=== PATIENT | male | born 1995 | race Two or more races ===

== ENCOUNTER 2017-08-13 00:11 | Inpatient (IN) | payer OTHER ==
--- NOTE | 2017-08-13 01:02 | HP ---
COWS - Scale Resting Pulse: 0= [place] 80 or Below Sweatin=Flushed/Facial Moisture Restless Observation: 5= Unable to Sit Still Pupil Size: 1= Pupils >than Normal Bone or Joint Aches: 4=Acute Joint/Muscle Pain Runny Nose/ Eye Tearin= Nasal Congestion GI Upset > 30mins: 2= Nausea/Diarrhea Tremor Observation: 2= Slight Tremor Visible Yawning Observation: 0= None Anxiety or Irritability: 2=Irritable/Anxious Goose Flesh Skin: 0=Smooth Skin COWS Score: 19 Admission [facility] - HPI Chief Complaint: C/O WITHDRAWAL SX'S AND HEROIN DEPENDENCE Allergies/Adverse Reactions: Allergies Allergy/AdvReac Type Severity Reaction Status Date / Time No Known Allergies Allergy Verified 08/13/17 00:56 History of Present Illness: 22 Y.O. MALE WITH LONG HX/O OPIOID DEPENDENCE HERE FOR DETOX. CLIENT REPORTS COMPLETING DETOX 2 WEEKS AGO AT [facility] BUT HAS SINCE RELAPSED. SELF REFERRED. DENIES ANY SIGNIFICANT PERIOD OF CLEAN TIME. PMHX DENIES BUT DOES REPORT MENTAL HEALTH HX/O DEPRESSION, BIPOLAR, ANXIETY ON MEDICATION MGMT. DENIES SI/HI, A/V HALLUCINATIONS. UTOX + FOR MTD, CLIENT DENIES USE Exam Limitations: No Limitations - Ebola screening Have you traveled outside of the country in the last 21 days: No (N) Have you had contact with anyone from an Ebola affected area: No Do you have a fever: No - Review of Systems Constitutional: Chills, Loss of Appetite, Malaise, Night Sweats, Changes in sleep EENT: reports: Nose Congestion Respiratory: reports: No Symptoms reported Cardiac: reports: No Symptoms Reported GI: reports: Nausea, Poor Appetite, Poor Fluid Intake : reports: No Symptoms Reported Musculoskeletal: reports: Joint Pain Integumentary: reports: No Symptoms Reported Neuro: reports: No Symptoms reported Endocrine: reports: No Symptoms Reported Hematology: reports: No Symptoms Reported Psychiatric: reports: Anxious, Depressed Other Systems: Reviewed and Negative Patient History - Patient Medical History Hx Anemia: No Hx Asthma: No Hx Chronic Obstructive Pulmonary Disease (COPD): No Hx Cancer: No Hx Cardiac Disorders: No Hx Congestive Heart Failure: No Hx Hypertension: No Hx Hypercholesterolemia: No Hx Pacemaker: No HX Cerebrovascular Accident: No Hx Seizures: No Hx Dementia: No Hx Diabetes: No Hx Gastrointestinal Disorders: No Hx Liver Disease: No Hx Genitourinary Disorders: No Hx Sexually Transmitted Disorders: No Hx Renal Disease (ESRD): No Hx Thyroid Disease: No Hx Human Immunodeficiency Virus (HIV): No Hx Hepatitis C: No Hx Depression: Yes Hx Suicide Attempt: No Hx Bipolar Disorder: Yes Hx Schizophrenia: No Other Medical History: DENIES - Patient Surgical History Past Surgical History: No - PPD History Previous Implant?: Yes Documented Results: Negative w/o proof Implanted On Prior [facility] Admission?: No PPD to be Administered?: Yes - Smoking Cessation Smoking history: Current every day smoker Have you smoked in the past 12 months: Yes Aproximately how many cigarettes per day: 10 Cigars Per Day: 0 Hx Chewing Tobacco Use: No Initiated information on smoking cessation: Yes 'Breaking Loose' booklet given: 08/13/17 - Substance & Tx. History Hx Alcohol Use: No Hx Substance Use: No Substance Use Type: Heroin Hx Substance Use Treatment: Yes ([facility]) - Substances Abused HEROIN Route: Injection Frequency: Daily Amount used: 10 Age of first use: 21 Date of Last Use: 08/12/17 Family Disease History - Family Disease History Family History: Denies Admission Physical Exam [facility] - Physical General Appearance: Yes: Appropriately Dressed, Mild Distress, Tremorous, Anxious HEENTM: Yes: EOMI, Normocephalic, Normal Voice, ARIADNA, Pharynx Normal, Nasal Congestion Respiratory: Yes: Chest Non-Tender, Lungs Clear, Normal Breath Sounds, No Respiratory Distress, No Accessory Muscle Use Neck: Yes: No masses,lesions,Nodules, Supple, Trachea in good position Breast: Yes: Breast Exam Deferred Cardiology: Yes: Regular Rhythm, Regular Rate, S1, S2 Abdominal: Yes: Normal Bowel Sounds, Non Tender, Flat, Soft Genitourinary: Yes: Within Normal Limits Back: Yes: Normal Inspection Musculoskeletal: Yes: full range of Motion, Gait Steady Extremities: Yes: Normal Range of Motion, Non-Tender, Tremors Neurological: Yes: Fully Oriented, Alert, Motor Strength 5/5 Integumentary: Yes: Normal Color, Warm, Track [place] Lymphatic: Yes: Within Normal Limits - Diagnostic (1) Opioid dependence with withdrawal Current Visit: Yes Status: Chronic (2) Cannabis abuse, uncomplicated Current Visit: Yes Status: Chronic (3) Nicotine dependence Current Visit: Yes Status: Chronic Qualifiers: Nicotine product type: cigarettes Substance use status: uncomplicated Qualified Code(s): F17.210 - Nicotine dependence, cigarettes, uncomplicated (4) Depressed mood Current Visit: Yes Status: Suspected Cleared for Admission [facility] - Detox or Rehab [facility] Level of Care: Medically Managed Detox Regimen/Protocol: Methadone Claeared for Rehab Admission: No BHS Breath Alcohol Content Breath Alcohol Content: 0 Vital Signs - Vital Signs Vital Signs Refused: No Temperature: 96.7 F Temperature Source: Oral Pulse Rate: 65 Respiratory Rate: 18 Blood Pressure: 145/85 BP Location: Left Arm Blood Pressure Position: Sitting - Height Height: 5 ft 11 in - Weight Weight: 81.647 kg Weight Measurement Method: Stated by Patient Body Mass Index (BMI): 25.1 - Bowel Function Bowel Movement: No Urine Drug Screen - Test Device Lot Number: [id number] Expiration Date: 04/30/19 - Control Is Test Valid: No - Results Drug Screen Negative: No Urine Drug Screen Results: THC-Marijuana, OPI-Opiates
[2017-08-13 01:07] VITALS: BMI 25.1
[2017-08-13] MEDS ORDERED: MAG HYDROX/AL HYDROX/SIMETH 30 ML UNIT-DOSE CUP PO PRN (01:08)
[2017-08-13] MEDS ORDERED: MAGNESIUM CITRATE 300 ML BOTTLE PO PRN (01:08)
[2017-08-13] MEDS ORDERED: MAGNESIUM HYDROX 2400MG/30ML ORAL SUSPENSION 30 ML CUP PO PRN (01:08)
[2017-08-13] MEDS ORDERED: LOPERAMIDE HCL 2 MG CAPSULE PO PRN (01:08)
[2017-08-13] MEDS ORDERED: METHADONE HCL 10 MG TABLET (FOR DETOX USE ONLY) PO ONE ×4 (01:08→23:00)
[2017-08-13] MEDS ORDERED: P-EPHED 60MG/TRIPROLIDI 2.5MG TABLET PO PRN (01:08)
[2017-08-13] MEDS ORDERED: IBUPROFEN 400 MG TABLET (FP) PO PRN (01:08)
[2017-08-13] MEDS ORDERED: MENTHOL/PHENOL 1 EACH UD MM PRN (01:08)
[2017-08-13] MEDS ORDERED: guaiFENesin/D-METHORPHAN HB 10 ML UNIT-DOSE CUPS PO PRN (01:08)
[2017-08-13] MEDS ORDERED: ACETAMINOPHEN 325 MG TABLET (FP) PO PRN (01:08)
[2017-08-13] MEDS: diazePAM 5 MG TABLET PO PRN ×5 (03:20→23:30)
[2017-08-13] MEDS: PRENATAL VITAMINS W/ FOLIC ACID TABLET (FP) PO SCH (10:37)
[2017-08-13] MEDS: NICOTINE 21 MG/24 HOURS TOPICAL PATCH TD SCH (10:37)
[2017-08-13] MEDS: NICOTINE POLACRILEX 2 MG GUM BC PRN (10:40)
[2017-08-13] MEDS ORDERED: FLU VACCINE QUAD 60 MCG/0.5 ML (MDV 17-18) IM ONE (12:00)
[2017-08-13] MEDS ORDERED: PNEUMOCOCCAL 23 VACCINE 0.5 ML VIAL IM ONE (12:00)
[2017-08-13] MEDS ORDERED: PNEUMOC 13-VAL CONJ-DIP CRM/PF 0.5 ML DISP.SYRIN IM ONE (12:00)
--- NOTE | 2017-08-13 12:03 | EKG ---
Test Reason : Blood Pressure : / mmHG Vent. Rate : 063 BPM Atrial Rate : 063 BPM P-R Int : 144 ms QRS Dur : 090 ms QT Int : 392 ms P-R-T Axes : 060 070 045 degrees QTc Int : 401 ms NORMAL SINUS RHYTHM NORMAL ECG NO PREVIOUS ECGS AVAILABLE Confirmed by SEPIDEH MOULTON, MAYE ([id number]) on 08/13/2017 12:02:48 PM Referred By: Confirmed By:MAYE BUNN MD
--- NOTE | 2017-08-13 13:50 | PN ---
BHS COWS - Scale Resting Pulse: 1= [place] 81-100 Sweatin= No chills or Flushing Restless Observation: 0= Sits Still Pupil Size: 0= Normal to Room Light Bone or Joint Aches: 2= Severe Diffuse Aches Runny Nose/ Eye Tearin= Runny Nose/Eyes GI Upset > 30mins: 2= Nausea/Diarrhea Tremor Observation of Outstretched Hands: 2= Slight Tremor Visible Yawning Observation: 2= >3x During Session Anxiety or Irritability: 2=Irritable/Anxious Goose Flesh Skin: 3=Piloerection COWS Score: 16 BHS Progress Note (SOAP) Subjective: Body Aches, Stomach Cramping, Nausea, Fatigue, Runny Nose. Objective: 08/13/17 13:49 Vital Signs Temperature 97.4 F L 08/13/17 09:40 Pulse Rate 74 08/13/17 09:40 Respiratory Rate 18 08/13/17 09:40 Blood Pressure 128/65 08/13/17 09:40 O2 Sat by Pulse Oximetry (%) ADMISSION LABS RESULTS PENDING. Assessment: 08/13/17 13:49 WITHDRAWAL SYMPTOMS. Plan: CONTINUE DETOX.
--- NOTE | 2017-08-13 13:50 | CONSULT ---
[facility] Psychiatric Consult - Data Date of interview: 08/13/17 Admission source: [facility] Identifying data: First admission to [facility] for this [place] male seeking detox treatment on for heroin and cannabis dependence.Patient is single without children,domiciled,unemployed and currently supported by his parents. Substance Abuse History: Confirmed by patient in this session.Smoking history: Current every day smoker. Have you smoked in the past 12 months: Yes. Aproximately how many cigarettes per day: 10. Cigars Per Day: 0. Hx Chewing Tobacco Use: No. Initiated information on smoking cessation: Yes. 'Breaking Loose' booklet given: 08/13/17. - Substance & Tx. History. Hx Alcohol Use: No. Hx Substance Use: No. Substance Use Type: Heroin. Hx Substance Use Treatment: Yes ([facility]). - Substances Abused. HEROIN. Route: Injection. Frequency: Daily. Amount used: 10. Age of first use: 21. Date of Last Use: 08/12/17 Medical History: Patient denies. Psychiatric History: Patient denies. Physical/Sexual Abuse/Trauma History: No reported history of abuse. Additional Comment: Urine Drug Screen Results: THC-Marijuana, OPI-Opiates.Noted. Mental Status Exam - Mental Status Exam Alert and Oriented to: Time, Place, Person Cognitive Function: Good Patient Appearance: Well Groomed Mood: Hopeful, Euthymic Affect: Appropriate, Normal Range Patient Behavior: Fatigued, Appropriate, Cooperative Speech Pattern: Clear, Appropriate Voice Loudness: Normal Thought Process: Intact, Goal Oriented Thought Disorder: Not Present Hallucinations: Denies Suicidal Ideation: Denies Homicidal Ideation: Denies Insight/Judgement: Poor Sleep: Poorly, Difficulty falling asleep Appetite: Good Muscle strength/Tone: Normal Gait/Station: Normal Psychiatric Findings - Problem List ([place] 1, 2,3) (1) Opioid dependence with withdrawal Current Visit: Yes Status: Acute (2) Cannabis abuse, uncomplicated Current Visit: Yes Status: Acute (3) Nicotine dependence Current Visit: Yes Status: Acute Qualifiers: Nicotine product type: cigarettes Substance use status: uncomplicated Qualified Code(s): F17.210 - Nicotine dependence, cigarettes, uncomplicated (4) Insomnia Current Visit: Yes Status: Acute - Initial Treatment Plan Initial Treatment Plan: Psychoeducation.Sleep hygiene.Detoxification in progress.Ambien 5 mg po hs prn.Patient is made aware of the risk of parasomnias.Mr Da agrees with this careplan.Observation.
[2017-08-13 16:18] LABS: HEMATOCRIT 42.5 % (35.4-49); MCH 28.5 pg (25.7-33.7); MEAN CELL VOLUME 86.4 fl (80-96); MEAN PLT VOLUME 7.6 fl (7.5-11.1); PLATELET COUNT 315 K/MM3 (134-434); RBC 4.93 M/mm3 (4.00-5.60); RDW 13.5 % (11.9-15.9); WHITE BLOOD COUNT 5.4 K/mm3 (4.0-10.0)
[2017-08-13 16:22] LABS: URINE APPEARANCE CLOUDY; URINE BILIRUBIN NEGATIVE (<2.0 mg/dL); URINE COLOR DKYELLOW; URINE GLUCOSE (UA) 2+ (NEGATIVE); URINE KETONE NEGATIVE (NEGATIVE); URINE LEUK ESTERASE NEGATIVE (NEGATIVE); URINE NITRITE NEGATIVE (NEGATIVE); URINE UROBILINOGEN NEGATIVE mg/dL (0.2-1.0)
[2017-08-13 16:30] LABS: CHLORIDE 102 mmol/L (98-107); SODIUM 139 mmol/L (136-145)
[2017-08-13 16:37] LABS: ALBUMIN 4.1 g/dl (3.4-5.0); ALK PHOS 76 U/L (45-117); ANION GAP 6 (8-16); BILIRUBIN,TOTAL 1.3 mg/dL (0.2-1.0); BLOOD UREA NITROGEN 13 mg/dL (7-18); CALCIUM 9.2 mg/dL (8.5-10.1); CO2 31 mmol/L (21-32); GLUCOSE,RANDOM 107 mg/dL (74-106); SGOT/AST 13 U/L (15-37); SGPT/ALT 22 U/L (12-78)
[2017-08-13 16:38] LABS: URINE PROTEIN 3+ (NEGATIVE)
[2017-08-13 17:57] LABS: EPI CELLS RARE /HPF (FEW); URINE MUCUS MODERATE
[2017-08-13] MEDS ORDERED: MELATONIN 5 MG TABLETS PO PRN (22:00)
[2017-08-13] MEDS: ZOLPIDEM TARTRATE 5 MG TABLET PO PRN (22:22)
[2017-08-13] MEDS: THIAMINE HCL 100 MG TABLET (FP) PO SCH (22:22)
[2017-08-14] MEDS: diazePAM 5 MG TABLET PO PRN ×4 (08:49→22:22)
[2017-08-14] MEDS: NICOTINE 21 MG/24 HOURS TOPICAL PATCH TD SCH (09:47)
[2017-08-14] MEDS: PRENATAL VITAMINS W/ FOLIC ACID TABLET (FP) PO SCH (09:47)
[2017-08-14] MEDS ORDERED: METHADONE HCL 10 MG TABLET (FOR DETOX USE ONLY) PO ONE (10:00)
[2017-08-14] MEDS: NICOTINE POLACRILEX 2 MG GUM BC PRN (13:38)
--- NOTE | 2017-08-14 14:48 | PN ---
BHS COWS - Scale Resting Pulse: 1= [place] 81-100 Sweatin= Chills/Flushing Restless Observation: 1= Difficult to Sit Still Pupil Size: 0= Normal to Room Light Bone or Joint Aches: 2= Severe Diffuse Aches Runny Nose/ Eye Tearin= Nasal Congestion GI Upset > 30mins: 1= Stomach Cramp Tremor Observation of Outstretched Hands: 0= None Yawning Observation: 0= None Anxiety or Irritability: 2=Irritable/Anxious Goose Flesh Skin: 3=Piloerection COWS Score: 12 BHS Progress Note (SOAP) Subjective: Interrupted Sleep, Fatigue, Body Aches, Stomach Cramping, Anxious. Objective: PATIENT A & O X 2 (UNCERTAIN ABOUT CURRENT DAY / DATE). PATIENT OBSERVED AMBULATING ON UNIT. NO ACUTE DISTRESS. 08/14/17 14:49 Vital Signs Temperature 97.6 F 08/14/17 14:25 Pulse Rate 83 08/14/17 14:25 Respiratory Rate 20 08/14/17 14:25 Blood Pressure 121/77 08/14/17 14:25 O2 Sat by Pulse Oximetry (%) Laboratory Tests 08/13/17 08/13/17 08/13/17 09:00 09:00 09:00 WBC 5.4 RBC 4.93 Hgb 14.0 Hct 42.5 MCV 86.4 MCH 28.5 MCHC 33.0 RDW 13.5 Plt Count 315 MPV 7.6 Sodium 139 Potassium 4.0 Chloride 102 Carbon Dioxide 31 Anion Gap 6 L BUN 13 Creatinine 1.0 Creat Clearance w eGFR > 60 Random Glucose 107 H Calcium 9.2 Total Bilirubin 1.3 H AST 13 L ALT 22 Alkaline Phosphatase 76 Total Protein 7.0 Albumin 4.1 Urine Color Urine Appearance Urine pH Ur Specific [place] Urine Protein Urine Glucose (UA) Urine Ketones Urine Blood Urine Nitrite Urine Bilirubin Urine Urobilinogen Ur Leukocyte Esterase Urine WBC (Auto) Urine RBC (Auto) Ur Epithelial Cells Urine Mucus RPR Titer Nonreactive 08/13/17 13:40 WBC RBC Hgb Hct MCV MCH MCHC RDW Plt Count MPV Sodium Potassium Chloride Carbon Dioxide Anion Gap BUN Creatinine Creat Clearance w eGFR Random Glucose Calcium Total Bilirubin AST ALT Alkaline Phosphatase Total Protein Albumin Urine Color Dkyellow Urine Appearance Cloudy Urine pH 8.0 Ur Specific [place] 1.031 Urine Protein 3+ H Urine Glucose (UA) 2+ H Urine Ketones Negative Urine Blood Negative Urine Nitrite Negative Urine Bilirubin Negative Urine Urobilinogen Negative Ur Leukocyte Esterase Negative Urine WBC (Auto) <1 Urine RBC (Auto) 2 Ur Epithelial Cells Rare Urine Mucus Moderate RPR Titer LABS NOTED. Assessment: 08/14/17 14:49 WITHDRAWAL SYMPTOMS. Plan: CONTINUE DETOX. INCREASE DAILY PO FLUID INTAKE. ENCOURAGE AMBULATION. REPEAT UA FOR ADMISSION ABNORMALITIES.
[2017-08-14] MEDS: ZOLPIDEM TARTRATE 5 MG TABLET PO PRN (22:22)
[2017-08-14] MEDS: THIAMINE HCL 100 MG TABLET (FP) PO SCH (22:22)
[2017-08-15] MEDS ORDERED: METHADONE HCL 5 MG TABLET (FOR DETOX USE ONLY) PO ONE (10:00)
[2017-08-15] MEDS: NICOTINE 21 MG/24 HOURS TOPICAL PATCH TD SCH (10:51)
[2017-08-15] MEDS: PRENATAL VITAMINS W/ FOLIC ACID TABLET (FP) PO SCH (10:51)
[2017-08-15] MEDS: diazePAM 5 MG TABLET PO PRN ×3 (10:51→20:12)
--- NOTE | 2017-08-15 11:40 | PN ---
BHS Progress Note (SOAP) Subjective: Tremors, Fatigue, Anxious. Objective: PATIENT A & O X 3. NO ACUTE DISTRESS. 08/15/17 11:38 Vital Signs Temperature 98.3 F 08/15/17 09:36 Pulse Rate 88 08/15/17 09:36 Respiratory Rate 16 08/15/17 09:36 Blood Pressure 128/79 08/15/17 09:36 O2 Sat by Pulse Oximetry (%) Laboratory Tests 08/13/17 08/13/17 08/13/17 09:00 09:00 09:00 WBC 5.4 RBC 4.93 Hgb 14.0 Hct 42.5 MCV 86.4 MCH 28.5 MCHC 33.0 RDW 13.5 Plt Count 315 MPV 7.6 Sodium 139 Potassium 4.0 Chloride 102 Carbon Dioxide 31 Anion Gap 6 L BUN 13 Creatinine 1.0 Creat Clearance w eGFR > 60 Random Glucose 107 H Calcium 9.2 Total Bilirubin 1.3 H AST 13 L ALT 22 Alkaline Phosphatase 76 Total Protein 7.0 Albumin 4.1 Urine Color Urine Appearance Urine pH Ur Specific [place] Urine Protein Urine Glucose (UA) Urine Ketones Urine Blood Urine Nitrite Urine Bilirubin Urine Urobilinogen Ur Leukocyte Esterase Urine WBC (Auto) Urine RBC (Auto) Ur Epithelial Cells Urine Mucus RPR Titer Nonreactive 08/13/17 13:40 WBC RBC Hgb Hct MCV MCH MCHC RDW Plt Count MPV Sodium Potassium Chloride Carbon Dioxide Anion Gap BUN Creatinine Creat Clearance w eGFR Random Glucose Calcium Total Bilirubin AST ALT Alkaline Phosphatase Total Protein Albumin Urine Color Dkyellow Urine Appearance Cloudy Urine pH 8.0 Ur Specific [place] 1.031 Urine Protein 3+ H Urine Glucose (UA) 2+ H Urine Ketones Negative Urine Blood Negative Urine Nitrite Negative Urine Bilirubin Negative Urine Urobilinogen Negative Ur Leukocyte Esterase Negative Urine WBC (Auto) <1 Urine RBC (Auto) 2 Ur Epithelial Cells Rare Urine Mucus Moderate RPR Titer LABS NOTED. RESULTS OF REPEAT UA PENDING. 08/15/17 11:40 Assessment: 08/15/17 11:39 WITHDRAWAL SYMPTOMS. Plan: CONTINUE DETOX. INCREASE DAILY PO FLUID INTAKE. ENCOURAGE AMBULATION.
[2017-08-15] MEDS: NICOTINE POLACRILEX 2 MG GUM BC PRN (20:34)
[2017-08-15] MEDS: THIAMINE HCL 100 MG TABLET (FP) PO SCH (22:22)
[2017-08-15] MEDS: ZOLPIDEM TARTRATE 5 MG TABLET PO PRN (22:22)
[2017-08-16] MEDS ORDERED: METHADONE HCL 5 MG TABLET (FOR DETOX USE ONLY) PO ONE (10:00)
[2017-08-16] MEDS: NICOTINE 21 MG/24 HOURS TOPICAL PATCH TD SCH (10:23)
[2017-08-16] MEDS: PRENATAL VITAMINS W/ FOLIC ACID TABLET (FP) PO SCH (10:23)
[2017-08-16 10:43] LABS: URINE APPEARANCE CLEAR; URINE BILIRUBIN NEGATIVE (<2.0 mg/dL); URINE COLOR STRAW; URINE GLUCOSE (UA) NEGATIVE (NEGATIVE); URINE KETONE NEGATIVE (NEGATIVE); URINE LEUK ESTERASE NEGATIVE (NEGATIVE); URINE NITRITE NEGATIVE (NEGATIVE); URINE PROTEIN NEGATIVE (NEGATIVE); URINE UROBILINOGEN NEGATIVE mg/dL (0.2-1.0)
[2017-08-16] MEDS: CYCLOBENZAPRINE HCL 10 MG TABLET (FP) PO PRN ×2 (13:45→22:26)
--- NOTE | 2017-08-16 18:44 | PN ---
BHS Progress Note (SOAP) Subjective: Anxious, Sweating, Fatigue. Objective: PATIENT A & O X 3, OBSERVED AMBULATING ON UNIT. NO ACUTE DISTRESS. 08/16/17 18:43 Vital Signs Temperature 96.6 F L 08/16/17 18:12 Pulse Rate 69 08/16/17 18:12 Respiratory Rate 18 08/16/17 18:12 Blood Pressure 119/69 08/16/17 18:12 O2 Sat by Pulse Oximetry (%) Laboratory Tests 08/13/17 08/13/17 08/13/17 09:00 09:00 09:00 WBC 5.4 RBC 4.93 Hgb 14.0 Hct 42.5 MCV 86.4 MCH 28.5 MCHC 33.0 RDW 13.5 Plt Count 315 MPV 7.6 Sodium 139 Potassium 4.0 Chloride 102 Carbon Dioxide 31 Anion Gap 6 L BUN 13 Creatinine 1.0 Creat Clearance w eGFR > 60 Random Glucose 107 H Calcium 9.2 Total Bilirubin 1.3 H AST 13 L ALT 22 Alkaline Phosphatase 76 Total Protein 7.0 Albumin 4.1 Urine Color Urine Appearance Urine pH Ur Specific [place] Urine Protein Urine Glucose (UA) Urine Ketones Urine Blood Urine Nitrite Urine Bilirubin Urine Urobilinogen Ur Leukocyte Esterase Urine WBC (Auto) Urine RBC (Auto) Ur Epithelial Cells Urine Mucus RPR Titer Nonreactive 08/13/17 08/16/17 13:40 07:50 WBC RBC Hgb Hct MCV MCH MCHC RDW Plt Count MPV Sodium Potassium Chloride Carbon Dioxide Anion Gap BUN Creatinine Creat Clearance w eGFR Random Glucose Calcium Total Bilirubin AST ALT Alkaline Phosphatase Total Protein Albumin Urine Color Dkyellow Straw Urine Appearance Cloudy Clear Urine pH 8.0 7.0 Ur Specific [place] 1.031 1.012 Urine Protein 3+ H Negative Urine Glucose (UA) 2+ H Negative Urine Ketones Negative Negative Urine Blood Negative Negative Urine Nitrite Negative Negative Urine Bilirubin Negative Negative Urine Urobilinogen Negative Negative Ur Leukocyte Esterase Negative Negative Urine WBC (Auto) <1 Urine RBC (Auto) 2 Ur Epithelial Cells Rare Urine Mucus Moderate RPR Titer LABS NOTED. RESULTS OF REPEAT UA NOTED. 08/16/17 18:44 Assessment: 08/16/17 18:44 WITHDRAWAL SYMPTOMS. Plan: CONTINUE DETOX.
[2017-08-16] MEDS: ZOLPIDEM TARTRATE 5 MG TABLET PO PRN (21:35)
[2017-08-16] MEDS: THIAMINE HCL 100 MG TABLET (FP) PO SCH (22:26)
[2017-08-17] MEDS ORDERED: METHADONE HCL 10 MG TABLET (FOR DETOX USE ONLY) PO ONE (10:00)
[2017-08-17] MEDS: PRENATAL VITAMINS W/ FOLIC ACID TABLET (FP) PO SCH (10:11)
[2017-08-17] MEDS: NICOTINE 21 MG/24 HOURS TOPICAL PATCH TD SCH (10:11)
[2017-08-17] MEDS: CYCLOBENZAPRINE HCL 10 MG TABLET (FP) PO PRN ×2 (10:12→17:15)
--- NOTE | 2017-08-17 16:46 | PN ---
BHS Progress Note (SOAP) Subjective: Body ache, abdominal pain, lethargic Objective: 08/17/17 16:44 Last Vital Signs Temp Pulse Resp BP Pulse Ox 97.6 F 106 H 18 136/84 08/17/17 13:33 08/17/17 13:33 08/17/17 13:33 08/17/17 13:33 Laboratory Tests 08/13/17 08/13/17 08/13/17 09:00 09:00 09:00 WBC 5.4 RBC 4.93 Hgb 14.0 Hct 42.5 MCV 86.4 MCH 28.5 MCHC 33.0 RDW 13.5 Plt Count 315 MPV 7.6 Sodium 139 Potassium 4.0 Chloride 102 Carbon Dioxide 31 Anion Gap 6 L BUN 13 Creatinine 1.0 Creat Clearance w eGFR > 60 Random Glucose 107 H Calcium 9.2 Total Bilirubin 1.3 H AST 13 L ALT 22 Alkaline Phosphatase 76 Total Protein 7.0 Albumin 4.1 Urine Color Urine Appearance Urine pH Ur Specific [place] Urine Protein Urine Glucose (UA) Urine Ketones Urine Blood Urine Nitrite Urine Bilirubin Urine Urobilinogen Ur Leukocyte Esterase Urine WBC (Auto) Urine RBC (Auto) Ur Epithelial Cells Urine Mucus RPR Titer Nonreactive 08/13/17 08/16/17 13:40 07:50 WBC RBC Hgb Hct MCV MCH MCHC RDW Plt Count MPV Sodium Potassium Chloride Carbon Dioxide Anion Gap BUN Creatinine Creat Clearance w eGFR Random Glucose Calcium Total Bilirubin AST ALT Alkaline Phosphatase Total Protein Albumin Urine Color Dkyellow Straw Urine Appearance Cloudy Clear Urine pH 8.0 7.0 Ur Specific [place] 1.031 1.012 Urine Protein 3+ H Negative Urine Glucose (UA) 2+ H Negative Urine Ketones Negative Negative Urine Blood Negative Negative Urine Nitrite Negative Negative Urine Bilirubin Negative Negative Urine Urobilinogen Negative Negative Ur Leukocyte Esterase Negative Negative Urine WBC (Auto) <1 Urine RBC (Auto) 2 Ur Epithelial Cells Rare Urine Mucus Moderate RPR Titer Labs reviewed Assessment: 08/17/17 16:45 Withdrawal symptoms Plan: Continue detox Encouraged PO hydration (water)
[2017-08-17] MEDS ORDERED: hydrOXYzine PAMOATE 25 MG CAPSULE (FP) PO ONE (22:00)
[2017-08-17] MEDS: THIAMINE HCL 100 MG TABLET (FP) PO SCH (22:32)
[2017-08-17] MEDS: NICOTINE POLACRILEX 2 MG GUM BC PRN (22:35)
[2017-08-18] MEDS ORDERED: METHADONE HCL 5 MG TABLET (FOR DETOX USE ONLY) PO ONE (06:00)
[2017-08-18 09:14] VITALS: BP 109/69; PULSE 82; TEMP 98.4
--- NOTE | 2017-08-18 11:38 | PN ---
BHS Progress Note (SOAP) Subjective: DETOX COMPLETED. ALERT O X 3. NAD. Objective: 08/18/17 11:37 Vital Signs 08/18/17 08/18/17 08/18/17 06:10 06:30 09:13 Temperature 97.4 F L 98.4 F Pulse Rate 84 82 Respiratory 18 18 18 Rate Blood Pressure 104/70 109/69 Laboratory Tests 08/13/17 08/13/17 08/13/17 09:00 09:00 09:00 WBC 5.4 RBC 4.93 Hgb 14.0 Hct 42.5 MCV 86.4 MCH 28.5 MCHC 33.0 RDW 13.5 Plt Count 315 MPV 7.6 Sodium 139 Potassium 4.0 Chloride 102 Carbon Dioxide 31 Anion Gap 6 L BUN 13 Creatinine 1.0 Creat Clearance w eGFR > 60 Random Glucose 107 H Calcium 9.2 Total Bilirubin 1.3 H AST 13 L ALT 22 Alkaline Phosphatase 76 Total Protein 7.0 Albumin 4.1 Urine Color Urine Appearance Urine pH Ur Specific [place] Urine Protein Urine Glucose (UA) Urine Ketones Urine Blood Urine Nitrite Urine Bilirubin Urine Urobilinogen Ur Leukocyte Esterase Urine WBC (Auto) Urine RBC (Auto) Ur Epithelial Cells Urine Mucus RPR Titer Nonreactive 08/13/17 08/16/17 13:40 07:50 WBC RBC Hgb Hct MCV MCH MCHC RDW Plt Count MPV Sodium Potassium Chloride Carbon Dioxide Anion Gap BUN Creatinine Creat Clearance w eGFR Random Glucose Calcium Total Bilirubin AST ALT Alkaline Phosphatase Total Protein Albumin Urine Color Dkyellow Straw Urine Appearance Cloudy Clear Urine pH 8.0 7.0 Ur Specific [place] 1.031 1.012 Urine Protein 3+ H Negative Urine Glucose (UA) 2+ H Negative Urine Ketones Negative Negative Urine Blood Negative Negative Urine Nitrite Negative Negative Urine Bilirubin Negative Negative Urine Urobilinogen Negative Negative Ur Leukocyte Esterase Negative Negative Urine WBC (Auto) <1 Urine RBC (Auto) 2 Ur Epithelial Cells Rare Urine Mucus Moderate RPR Titer Assessment: 08/18/17 11:37 MEDICALLY STABLE Plan: D/C PT TODAY
--- NOTE | 2017-08-18 11:44 | DS ---
[facility] Detox Discharge Summary Admission Date: 08/13/17 Discharge Date: 08/18/17 - History Present History: Cannabis Dependence, Opioid Dependence Additional Comments: DETOX COMPLETED. ALERT O X COMPLETED. PT STATES HE WILL BE GOING TO [facility]. Pertinent Past History: PLEASE SEE DX BELOW - Physical Exam Results Vital Signs: Vital Signs Temperature 98.4 F 08/18/17 09:13 Pulse Rate 82 08/18/17 09:13 Respiratory Rate 18 08/18/17 09:13 Blood Pressure 109/69 08/18/17 09:13 O2 Sat by Pulse Oximetry (%) Pertinent Admission Physical Exam Findings: Laboratory Tests 08/13/17 08/13/17 08/13/17 09:00 09:00 09:00 WBC 5.4 RBC 4.93 Hgb 14.0 Hct 42.5 MCV 86.4 MCH 28.5 MCHC 33.0 RDW 13.5 Plt Count 315 MPV 7.6 Sodium 139 Potassium 4.0 Chloride 102 Carbon Dioxide 31 Anion Gap 6 L BUN 13 Creatinine 1.0 Creat Clearance w eGFR > 60 Random Glucose 107 H Calcium 9.2 Total Bilirubin 1.3 H AST 13 L ALT 22 Alkaline Phosphatase 76 Total Protein 7.0 Albumin 4.1 Urine Color Urine Appearance Urine pH Ur Specific [place] Urine Protein Urine Glucose (UA) Urine Ketones Urine Blood Urine Nitrite Urine Bilirubin Urine Urobilinogen Ur Leukocyte Esterase Urine WBC (Auto) Urine RBC (Auto) Ur Epithelial Cells Urine Mucus RPR Titer Nonreactive 08/13/17 08/16/17 13:40 07:50 WBC RBC Hgb Hct MCV MCH MCHC RDW Plt Count MPV Sodium Potassium Chloride Carbon Dioxide Anion Gap BUN Creatinine Creat Clearance w eGFR Random Glucose Calcium Total Bilirubin AST ALT Alkaline Phosphatase Total Protein Albumin Urine Color Dkyellow Straw Urine Appearance Cloudy Clear Urine pH 8.0 7.0 Ur Specific [place] 1.031 1.012 Urine Protein 3+ H Negative Urine Glucose (UA) 2+ H Negative Urine Ketones Negative Negative Urine Blood Negative Negative Urine Nitrite Negative Negative Urine Bilirubin Negative Negative Urine Urobilinogen Negative Negative Ur Leukocyte Esterase Negative Negative Urine WBC (Auto) <1 Urine RBC (Auto) 2 Ur Epithelial Cells Rare Urine Mucus Moderate RPR Titer - Treatment Hospital Course: Detox Protocol Followed, Detoxed Safely, Responded well, Discharged Condition Good - Medication Discharge Medications: Ambulatory Orders Escitalopram Oxalate [Lexapro -] 10 mg PO DAILY 08/13/17 Gabapentin 300 mg PO BID 08/13/17 Trazodone HCl 100 mg PO HS 08/13/17 - Diagnosis (1) Opioid dependence with withdrawal Status: Acute (2) Cannabis abuse, uncomplicated Status: Acute (3) Nicotine dependence Status: Acute Qualifiers: Nicotine product type: cigarettes Substance use status: in withdrawal Qualified Code(s): F17.213 - Nicotine dependence, cigarettes, with withdrawal - AMA Did Patient Leave Against Medical Advice: No
== END 2017-08-18 09:42 | disposition home or self-care (01) | DRG 773 ==
LOC: YASAS 00:11 → Y3N 01:22
PROVIDERS: ADMIT Internal Medicine; ATTEND Internal Medicine
PROC: HZ2ZZZZ Detoxification Services for Substance Abuse Treatment (ICD-10-PCS; principal; 2017-08-13)
DX: F11.23 Opioid dependence with withdrawal (principal); F12.10 Cannabis abuse, uncomplicated; F17.210 Nicotine dependence, cigarettes, uncomplicated; F32.9 Major depressive disorder, single episode, unspecified; G47.00 Insomnia, unspecified
CPT/HCPCS: 36415; 80053; 81003; 81015; 85027; 86593; 93005; 93010